=== PATIENT | male | born 1985 | race Caucasian/White ===

== ENCOUNTER → 2017-11-25 | Outpatient (CLI) | payer MEDICAID ==
--- NOTE | 2017-11-25 15:12 | RADIOLOGY REPORT (SQ) ---
EXAM DESCRIPTION: KUB COMPLETED DATE/TIME: 11/25/2017 2:34 pm REASON FOR STUDY: KIDNEY STONE N20.0 CALCULUS OF KIDNEY COMPARISON: 10/03/2016. NUMBER OF VIEWS: One view. TECHNIQUE: AP supine digital radiograph of the abdomen. LIMITATIONS: None. FINDINGS: CALCIFICATIONS: RIGHT KIDNEY: None. RIGHT URETER: No calcifications in the expected location of the ureter. LEFT KIDNEY: None. LEFT URETER: No calcifications in the expected location of the ureter. BLADDER: No suspicious calcifications in the pelvis. BOWEL GAS PATTERN AND SOFT TISSUES: Normal bowel gas pattern. No masses or organomegaly. BONES: No acute fracture. No worrisome bone lesions. OTHER: None. IMPRESSION: NO CALCIFICATIONS IDENTIFIED IN THE EXPECTED LOCATION OF THE URINARY SYSTEM. TECHNICAL DOCUMENTATION: JOB ID: [id number]- All Rights Reserved
== END ==
LOC: OD 14:27
PROVIDERS: ATTEND Urology
DX: N20.0 Calculus of kidney (principal)
CPT/HCPCS: 74018

== ENCOUNTER 2018-09-16 09:10 | Day surgery (SDC) | payer MEDICAID ==
[2018-09-09 10:04] LABS: HEMATOCRIT 42.8 % (37.9-51.0); MEAN CORPUSCULAR HEMOGLOBIN 28.4 pg (27.0-33.4); MEAN CORPUSCULAR VOLUME 81 fl (80-97); PLATELET COUNT 223 10^3/uL (150-450); RED BLOOD COUNT 5.27 10^6/uL (4.35-5.55); RED CELL DISTRIBUTION WIDTH 13.3 % (11.5-14.0); WHITE BLOOD COUNT 8.6 10^3/uL (4.0-10.5)
[2018-09-09 10:44] LABS: ANION GAP 12 (5-19); BLOOD UREA NITROGEN 15 mg/dL (7-20); CALCIUM 9.6 mg/dL (8.4-10.2); CARBON DIOXIDE 23 mmol/L (22-30); CHLORIDE 106 mmol/L (98-107); GLUCOSE 94 mg/dL (75-110); POTASSIUM 4.3 mmol/L (3.6-5.0); SODIUM 141.4 mmol/L (137-145)
[~2018-09-16 09:10] MED LIST: CEFAZOLIN 1 GM/D5W RTU 1 GM/50 ML RTUPB IV SCH; LACTATED RINGERS 1000 ML IV PRN; LIDOCAINE 0.5% INJ-PF (5 MG/ML) 50 ML SDV SUBCUT PRN; LIDOCAINE 4% TRANSPARENT DRESSING 5 GM KIT TP SCH; SUCCINYLCHOLINE CHLORIDE INJ 200 MG/10 ML VIAL ONE
[2018-09-16] MEDS ORDERED: METHYLENE BLUE 50 MG/10 ML AMPULE ONE (09:13)
[2018-09-16] MEDS ORDERED: LIDOCAINE 1%/EPINEPHRINE INJ 20 ML VIAL ONE (09:13)
[2018-09-16] MEDS ORDERED: LIDOCAINE 4% TRANSPARENT DRESSING 5 GM KIT ONE (09:24)
[2018-09-16] MEDS ORDERED: CEFAZOLIN 1 GM/D5W RTU 1 GM/50 ML RTUPB IV ONE (09:24)
[2018-09-16] MEDS ORDERED: FENTANYL CITRATE INJ/PF 250 MCG/5 ML AMPULE ONE (14:44)
[2018-09-16] MEDS ORDERED: DEXAMETHASONE SOD PHOSPHATE INJ 4 MG/1 ML VIAL ONE (14:44)
[2018-09-16] MEDS ORDERED: ONDANSETRON HCL INJ/PF 4 MG/2 ML SDV ONE (14:44)
[2018-09-16] MEDS ORDERED: MIDAZOLAM 2 MG/2 ML INJ ONE (14:44)
[2018-09-16] MEDS ORDERED: PROPOFOL INJ 200 MG/20 ML VIAL IV ONE (14:45)
[2018-09-16] MEDS ORDERED: ACETAMINOPHEN 1,000 MG/100 ML RTUPB IV ONE (15:01)
--- NOTE | 2018-09-16 15:04 | RADIOLOGY REPORT (SQ) ---
"EXAM DESCRIPTION: NM LYMPHATICS/LYMPH GLANDS COMPLETED DATE/TIME: 09/16/2018 12:27 pm REASON FOR STUDY: MELANOMA C43.59 MALIGNANT MELANOMA OF OTHER PART OF TRUNK COMPARISON: None. RADIONUCLIDE AND DOSE: 579 microcuries TC-99m tilmanocept - Lymphoseek. The route of agent administration: Subcutaneous in the skin. TECHNIQUE: The skin of the left back, near midline at the T7 level in the area of prior melanoma bio psy was prepped in sterile fashion. The radiopharmaceutical was administered in equally divided dose s in the skin around the punch biopsy site LIMITATIONS: None. FINDINGS: Images demonstrate activity at the injection site. There is rapid migration to a left axillary lymph node. No migration to the right axilla, left or ri ght groin is identified. These findings were discussed with Dr. Ovalles IMPRESSION: ADMINISTRATION OF RADIOPHARMACEUTICAL FOR SENTINEL LYMPH NODE EVALUATION. TECHNICAL DOCUMENTATION: JOB ID: [id number] [employer] - innovate | mentor | invest- All Rights Reserved Reading location - IP/workstation name: [facility]"
[2018-09-16] MEDS ORDERED: FENTANYL CITRATE INJ/PF 100 MCG/2 ML AMPUL IV PRN ×3 (15:21)
[2018-09-16] MEDS ORDERED: DIPHENHYDRAMINE HCL 50 MG/ML VIAL IV PRN (15:21)
[2018-09-16] MEDS ORDERED: OXYCODONE-ACETAMINOPHEN 5-325 MG TABLET PO PRN ×3 (15:21→16:38)
[2018-09-16] MEDS ORDERED: PROMETHAZINE HCL INJ 25 MG/1 ML VIAL IV PRN ×2 (15:21)
[2018-09-16] MEDS ORDERED: MEPERIDINE HCL/PF INJ 25 MG/1 ML DISP.SYRIN IV PRN (15:21)
[2018-09-16] MEDS ORDERED: MORPHINE SULFATE 10 MG/ML INJ IV PRN (15:21)
--- NOTE | 2018-09-16 16:38 | Discharge Summary ---
Discharge Summary (SDC) - Discharge Final Diagnosis: melanoma of back Date of Surgery: 09/16/18 Discharge Date: 09/16/18 Condition: Stable Forms: Discharge POC-Surgical Service Treatment or Instructions: WOUND CARE: 1) Do not get area wet for 48 hours. Keep outer dressings intact. You may cover your back with gauze and tape if it is more comfortable. After 48 hours you may remove axillary outer dressing but leave paper band aids (steri strips) beneath intact. Leave steri strips on your back intact as well. Warm water and soap may wash over the areas, pat dry, cover if needed. Do not scrub. Keep areas warm, dry and covered. PAIN MANAGEMENT: 1) You may take Toradol 10mg one pill by mouth every six hours as needed for pain. FOLLOW UP: 1) Follow up at [facility] in 7-10 days for wound evaluation and pathology review. Prescriptions: Ketorolac Tromethamine [Toradol 10 mg Tablet] 10 mg PO Q6HP PRN #20 tablet PRN Reason: Referrals: EJ FUCHS MD [Primary Care Provider] - TANK PATEL MD [ACTIVE STAFF] - 09/22/18 2:45 pm Discharge Activity: No Lifting/Push/Pulling, Walk Frequently Report the Following to Your Physician Immediately: Increase in Pain, Fever over 101 Degrees, Unusual Bleeding, Redness, Swelling, Warmth, Increased Soreness, Drainage-Yellow, Drainage-Garcia, Drainage-Green, Drainage-Foul Smelling
[2018-09-16] MEDS ORDERED: PROMETHAZINE HCL INJ 25 MG/1 ML VIAL ONE (16:54)
--- NOTE | 2018-09-16 16:55 | Operative Report ---
Operative Report DATE OF SURGERY: 09/16/18 PREOPERATIVE DIAGNOSIS: Intermediate thickness melanoma of the back POSTOPERATIVE DIAGNOSIS: Same OPERATION: 1. Wide excision of back melanoma. 2. [place] lymph node biopsy x2 left axilla SURGEON: TANK HADLEY PHYSICAL THERAPIST TECHNICIAN: LORETO RUTHERFORD ANESTHESIA: GA TISSUE REMOVED OR ALTERED: Melanoma back; 2 sentinel lymph nodes left axilla COMPLICATIONS: None ESTIMATED BLOOD LOSS: Scant INTRAOPERATIVE FINDINGS: see below PROCEDURE: Patient was seen in the preop holding area where he had previously underwent lymphoscintigraphy radiology department which demonstrated increased uptake in the left axilla. Bedside evaluation using the neoprobe showed activity in the right axilla as well as the right groin and suprapubic area. The patient was taken back to the radiology department where he was in nuclear medicine and found to have no increased activity in sites other than the back and left axilla. He was then taken to the main operating room where general anesthesia was induced. He was left in the supine position left arm abducted, left axilla clipped of hair, then prepped and draped in sterile fashion. Surgical plan surgical timeout were conducted. Using the neoprobe an area of increased activity in the low left axilla was identified. It was anesthetized with 1% plain lidocaine. A 2-1/2 cm incision was made over the hot point, and 2 sentinel lymph nodes were harvested. First had an in vivo count of 58,784 and an ex vivo count of 53,420. The second sentinel lymph node had an in vivo count of 4310 an ex vivo count of 4441. Background counts were negligible. We felt the sentinel lymph node harvest portion of the operation was complete. Wound closed with 3-0 Vicryl benzoin and Steri-Strips. We now rotated the patient onto his right side left side up with axillary roll placed in the right axilla. The target melanoma was identified, and prepped and draped with Betadine. Markings were made around the melanoma for a 2 cm margin laterally and a 3 cm margin superiorly and inferiorly. Skin was anesthetized with 1% plain lidocaine. An elliptical incision was made with a # 10 blade, the level of dissection taken down to the trapezius fascia and the fascia overlying the spinous processes. The excision was removed with electrocautery. It was marked with a short suture in the superior position long suture in the inferior position and sent to pathology for permanent analysis. Lateral and medial side flaps were elevated with electrocautery. The wound closed in layers with multiple 2-0 Vicryl sutures of 3-0 Vicryl, benzoin and Steri-Strips. No drain was placed. Patient tolerated procedure well, extubated , taken recovery in stable condition. The physician central supply assistant, Ms. Munroe, provided assistance during this case by: Assisting with retracting tissue, instillation of local anesthesia and closure of skin incisions.
[2018-09-16] MEDS ORDERED: ONDANSETRON 4 MG TAB.RAPDIS ONE ×2 (18:41→18:48)
[2018-09-16 18:55] VITALS: BP 135/94
[2018-09-16] MEDS ORDERED: ONDANSETRON 4 MG TAB.RAPDIS PO ONE (19:00)
== END 2018-09-16 18:55 | disposition home or self-care (01) ==
LOC: OROUT 09:10
PROVIDERS: ATTEND Surgery
DX: C43.59 Malignant melanoma of other part of trunk (principal); M10.9 Gout, unspecified; F84.0 Autistic disorder; J45.909 Unspecified asthma, uncomplicated; Z79.51 Long term (current) use of inhaled steroids; Z88.8 Allergy status to other drugs, medicaments and biological substances
CPT/HCPCS: 36415; 85027; 80048; 88342 ×2; 88341 ×2; 88307 ×2; 78195; 21930; 38500; A9520; J2250; J0690; J1100; S0119; J3010; J3490 ×2; J2550; J0330; J2405; J2704; J0131; Q9968; 1610

== ENCOUNTER → 2020-06-22 | Outpatient (CLI) | payer MEDICAID ==
[2020-06-22 09:19] LABS: ABSOLUTE EOSINOPHILS # (AUTO) 0.2 10^3/uL (0.0-0.6); ABSOLUTE LYMPHOCYTES (AUTO) 2.6 10^3/uL (0.5-4.7); ABSOLUTE MONOCYTES (AUTO) 0.5 10^3/uL (0.1-1.4); ABSOLUTE NEUT (AUTO) 5.1 10^3/uL (1.7-8.2); BASOPHILS % (AUTO) 0.3 % (0-2); EOSINOPHILS % (AUTO) 2.4 % (0-6); HEMOGLOBIN 15.6 g/dL (13.5-17.0); MEAN CORPUSCULAR HEMOGLOBIN 28.3 pg (27.0-33.4); MEAN CORPUSCULAR HGB CONC 34.6 g/dL (32.0-36.0); MEAN CORPUSCULAR VOLUME 82 fl (80-97); MONOCYTES % (AUTO) 5.8 % (3-13); PLATELET COUNT 214 10^3/uL (150-450); RED BLOOD COUNT 5.51 10^6/uL (4.35-5.55); SEGMENTED NEUTROPHILS % (AUTO) 60.5 % (42-78); TOTAL CELLS COUNTED % (AUTO) 100 %; WHITE BLOOD COUNT 8.5 10^3/uL (4.0-10.5)
[2020-06-22 09:46] LABS: ALBUMIN 4.9 g/dL (3.5-5.0); ALKALINE PHOSPHATASE 89 U/L (38-126); ANION GAP 11 (5-19); ASPARTATE AMINO TRANSFERASE 39 U/L (17-59); BILIRUBIN,TOTAL 0.7 mg/dL (0.2-1.3); BLOOD UREA NITROGEN 12 mg/dL (7-20); CALCIUM 9.7 mg/dL (8.4-10.2); CARBON DIOXIDE 24 mmol/L (22-30); CHLORIDE 104 mmol/L (98-107); CHOLESTEROL 243.41 mg/dL (0-200); GLUCOSE 110 mg/dL (75-110); POTASSIUM 4.3 mmol/L (3.6-5.0); TRIGLYCERIDES 183 mg/dL (<150)
[2020-06-22 10:01] LABS: VLDL CHOLESTEROL 36.6 mg/dL (10-31)
[2020-06-22 10:03] LABS: DIRECT LDL 182 mg/dL (<100)
== END ==
LOC: OD 08:40
PROVIDERS: ATTEND Family Medicine Geriatric Medicine
DX: E66.3 Overweight (principal); Z79.899 Other long term (current) drug therapy
CPT/HCPCS: 36415; 80053; 80061; 84443; 85025

== ENCOUNTER → 2020-10-11 | Outpatient (CLI) | payer MEDICAID ==
--- NOTE | 2020-10-11 14:37 | ER RDC ASSESSMENT REPORT ---
Intake - In the Last 14 days Have you traveled outside [place]?: No Have you been in close contact with someone CONFIRMED: No Worked in Healthcare?: No - Symptoms Subjective Fever([place] feverish): No Chills: No Muscule Aches: No Runny Nose: No Sore Throat: No Cough (New or worsening chronic cough): No Shortness of breath: No Nausea or Vomiting: No Headache: Yes Abdominal Pain: No Diarrhea(3 or more loose stools in last 24 hours): No - Do you have any of the following Chronic lung disease: Asthma or emphysema or COPD: Yes Chronic Lung Disease Comment: asthma Cystic Fibrosis: No Diabetes: No High Blood Pressure: No Cardiovascular Disease: No Chronic Kidney Disease: Yes Chronic Liver Disease: No Chronic blood disorder like Sickle Cell Disease: No Weak immune system due to disease or medication: No Neurologic condition that limits movement: Yes Neurological Condition Comment: autism Developmental delay - Moderate to Severe: No Recent (within past 2 weeks) or current : No Morbid Obesity (>100 pounds over ideal weight): No - Objective Temperature: 97.9 F Pulse Rate: 69 Respiratory Rate: 16 Blood Pressure: 123/66 O2 Sat by Pulse Oximetry: 96 Objective: Given above, testing performed: If Testing Performed: Test Specimen Type Sent to General - General Information source: Patient, Parent Notes: Patient presents to the RDC for screening for the coronavirus. Patient has had headache symptoms and sinus congestion for the past 3 days. - Related Data Allergies/Adverse Reactions: albuterol [Albuterol] Allergy (Verified 09/09/18 08:39) Facial swelling Past Medical History - General Information source: Patient, Parent - Social History Smoking Status: Never Smoker Family History: Reviewed & Not Pertinent - Past Medical History Cardiac Medical History: Denies: Hx Coronary Artery Disease, Hx Heart Attack, Hx Hypertension Pulmonary Medical History: Reports: Hx Asthma - H/O SPORTS INDUCED CHILD, NO RECENT ATTACK, NO MEDS Denies: Hx Bronchitis, Hx COPD, Hx Pneumonia Neurological Medical History: Reports: Hx Seizures - H/O SEIZURES CHILD, NONE SINCE CHILDHOOD. Denies: Hx Cerebrovascular Accident Renal/ Medical History: Reports: Hx Kidney Stones GI Medical History: Denies: Hx Hepatitis, Hx Hiatal Hernia, Hx Ulcer Musculoskeletal Medical History: Denies Hx Arthritis Infectious Medical History: Denies: Hx Hepatitis Past Surgical History: Reports: Hx Urinary Tract Surgery - stents r/t blockage Physical Exam - Notes Notes: The patient was evaluated during the global Covid 19 pandemic, and that diagnosis was suspected/considered upon their initial presentation. Their evaluation, treatment and testing was consistent with current guidelines for patients who present with complaints or symptoms that may be related to Covid 19. Full physical exam could not be performed due to covid 19 isolation protocols. Constitutional: Nontoxic appearance, no acute distress Eyes: Nonicteric, extraocular movements intact, sclera clear Cardiovascular: Heart rate and rhythm regular, no JVD Respiratory: Breath sounds clear bilaterally, nonlabored breathing, no use of accessory muscles, no tachypnea Gastrointestinal: Abdomen not distended Muculoskeletal: Moves all extremities well Skin: Normal color Neuro: Awake alert oriented, normal speech Psych: Normal mood and affect Diagnostic Results Laboratory Results: Patient presents with symptoms worrisome for possible Covid 19. Patient does not have emergency worrying symptoms such as difficulty breathing, shortness of breath, chest pain, pressure, confusion or cyanosis. Patient appears suitable for discharge as vital signs are stable and patient is nontoxic in appearance. Good return precautions have been discussed with patient, patient verbalized understanding and is agreeable with discharge plan of care at this time. Patient Education/Counseling Counseling/Education: Patient was provided with discharge information including: As a person under investigation for Covid 19, the [place] department of Health and Human Services, division of public health advises you to adhere to the following guidance until your test results are reported to you. If your test result is positive, you will receive additional information from your provider and your local health department at that time. Remain at home until you are cleared by the health provider or public health authorities. Keep a log of visitors to your home, notify any visitors to your home of your isolation status. If you plan to move to a new address or leave the county, notify the local health department in your County. Call your doctor or seek care if you have an urgent medical need. Before seeking medical care, call ahead to get instructions from the provider before arriving at the medical office clinic or hospital. Notify them that you are being tested for the virus that causes Covid 19 so that arrangements can be made, as necessary, to prevent transmission to others in the healthcare setting. Next, notify the local health department in your county. If a medical emergency arises and you need to call 911, inform the first responders that you are being tested for the virus that causes Covid 19. Next, notify the local health department in your county. RDC Discharge - Discharge Condition: Stable Disposition: Home; Selfcare
[2020-10-11 14:40] VITALS: BP 123/66
[2020-10-11 16:00] LABS: A TYPE INFLUENZA AG NEGATIVE (NEGATIVE); B INFLUENZA AG NEGATIVE (NEGATIVE)
== END ==
LOC: RDC 13:58
PROVIDERS: ATTEND Nurse Practitioner Family
DX: Z20.828 Contact with and (suspected) exposure to other viral communicable diseases (principal); R51.9 Headache, unspecified; J45.909 Unspecified asthma, uncomplicated; R09.81 Nasal congestion; Z88.8 Allergy status to other drugs, medicaments and biological substances
CPT/HCPCS: 87070; 87880; 87635; 87804; 99201; 99211; C9803

== ENCOUNTER 2020-10-16 18:01 | Emergency (ER) | payer MEDICAID ==
--- NOTE | 2020-10-16 20:46 | ER Document Report ---
ED Medical Screen (RME) - General Chief Complaint: Cough Stated Complaint: COUGH Time Seen by Provider: 10/16/20 20:38 Primary Care Provider: EJ FUCHS MD [Primary Care Provider] - Follow up as needed TRAVEL OUTSIDE OF THE [place] IN LAST 30 DAYS: No - HPI Notes: Patient is a 35-year-old male who presents with shortness of breath, cough, and nasal congestion for the past 2 weeks. Patient had rapid flu, strep and Covid swabs done at the onset of symptoms which were all negative. Patient states all his symptoms have resolved but he continues to have a cough. He denies fever, chills, and chest pain. - Related Data Allergies/Adverse Reactions: albuterol [Albuterol] Allergy (Verified 09/09/18 08:39) Facial swelling Home Medications: triliptal, mucinex, nyquil Past Medical History - Past Medical History Cardiac Medical History: Denies: Hx Coronary Artery Disease, Hx Heart Attack, Hx Hypertension Pulmonary Medical History: Reports: Hx Asthma - H/O SPORTS INDUCED CHILD, NO RECENT ATTACK, NO MEDS Denies: Hx Bronchitis, Hx COPD, Hx Pneumonia Neurological Medical History: Reports: Hx Seizures - H/O SEIZURES CHILD, NONE SINCE CHILDHOOD. Denies: Hx Cerebrovascular Accident Renal/ Medical History: Reports: Hx Kidney Stones GI Medical History: Denies: Hx Hepatitis, Hx Hiatal Hernia, Hx Ulcer Musculoskeltal Medical History: Denies Hx Arthritis Infectious Medical History: Denies: Hx Hepatitis Past Surgical History: Reports: Hx Urinary Tract Surgery - stents r/t blockage - Immunizations Hx Diphtheria, Pertussis, Tetanus Vaccination: Yes Physical Exam - Vital signs Vitals: Temp Pulse Resp BP Pulse Ox 98.1 F 69 20 150/87 H 98 10/16/20 18:07 10/16/20 18:07 10/16/20 18:07 10/16/20 18:07 10/16/20 18:07 - Respiratory Respiratory status: No respiratory distress Breath sounds: Normal, Nonproductive cough Course - Re-evaluation Re-evalutation: I have greeted and performed a rapid initial assessment of this patient. A comprehensive ED assessment and evaluation of the patient, analysis of test results and completion of medical decision making process will be conducted by an additional ED providers. - Vital Signs Vital signs: Temp Pulse Resp BP Pulse Ox 98.1 F 69 20 150/87 H 98 10/16/20 18:07 10/16/20 18:07 10/16/20 18:07 10/16/20 18:07 10/16/20 18:07 Doctor's Discharge - Discharge Referrals: EJ FUCHS MD [Primary Care Provider] - Follow up as needed
--- NOTE | 2020-10-16 21:25 | RADIOLOGY REPORT (SQ) ---
EXAM DESCRIPTION: XR CHEST 1 VIEW COMPLETED DATE/TME: 10/16/2020 21:02 CLINICAL HISTORY: 35 years, Male, cough COMPARISON: None. TECHNIQUE: PA view of the chest FINDINGS: Cardiomediastinal silhouette is not enlarged. No suspicious lung pleural bone abnormalities. IMPRESSION: Negative chest x-ray
[2020-10-16] MEDS ORDERED: DEXAMETHASONE 4 MG TABLET PO ONE (22:23)
--- NOTE | 2020-10-16 22:29 | ER Document Report ---
ED Respiratory Problem - General Chief Complaint: Cough Stated Complaint: COUGH Time Seen by Provider: 10/16/20 20:38 Primary Care Provider: EJ FUCHS MD [Primary Care Provider] - Follow up as needed Notes: CHIEF COMPLAINT: Cough for 2 weeks HPI: 35-year-old male presenting for continued cough with occasional shortness of breath with coughing episodes no fever. Symptoms ongoing for 2 weeks. Had Covid flu and strep testing 5 days ago that was all negative per the patient. ROS: See HPI - all other systems were reviewed and are otherwise negative Constitutional: no fever Eyes: no drainage, no blurred vision ENT: no runny nose, no sore throat Cardiovascular: no chest pain Resp: + SOB, + cough GI: no vomiting, no diarrhea, no abdominal pain : no dysuria Integumentary: no rash Allergy: no hives Musculoskeletal: no extremity pain or swelling Neurological: no numbness/tingling, no weakness MEDICATIONS: I agree with the patient medications as charted by the RN. ALLERGIES: I agree with the allergies as charted by the RN. PAST MEDICAL HISTORY/PAST SURGICAL HISTORY: Reviewed and agree as charted by RN. SOCIAL HISTORY: Reviewed and agree as charted by RN. FAMILY HISTORY: No significant familial comorbid conditions directly related to patient complaint EXAM: Reviewed vital signs as charted by RN. CONSTITUTIONAL: Alert and oriented and responds appropriately to questions. Well-appearing; well-nourished HEAD: Normocephalic; atraumatic EYES: PERRL; Conjunctivae clear, sclerae non-icteric ENT: normal nose; no rhinorrhea; moist mucous membranes; pharynx without lesions noted, no uvula edema or deviation, no tonsillar hypertrophy, phonation normal NECK: Supple without meningismus; non-tender; no cervical lymphadenopathy, no masses CARD: RRR; no murmurs, no clicks, no rubs, no gallops; symmetric distal pulses RESP: Normal chest excursion without splinting or tachypnea; breath sounds clear and equal bilaterally; no wheezes, no rhonchi, no rales, pulse oximetry 98% on room air not hypoxic, mildly spastic cough noted ABD/GI: Normal bowel sounds; non-distended; soft, non-tender, no rebound, no guarding; no palpable organomegaly or masses. BACK: The back appears normal and is non-tender to palpation, there is no CVA tenderness EXT: Normal ROM in all joints; non-tender to palpation; no cyanosis, no effusions, no edema SKIN: Normal color for age and race; warm; dry; good turgor; no acute lesions noted NEURO: Moves all extremities equally; Motor and sensory function intact PSYCH: The patient's mood and manner are appropriate. Grooming and personal hygiene are appropriate. MDM: 35-year-old male with a mildly spastic cough over the last 2 weeks. Patient reports negative strep flu and Covid testing 5 days ago. His chest x- ray tonight ordered in the triage process is negative he is in no acute distress he is not hypoxic or tachypneic. Will give a one-time dose of Decadron, placed on flovent inhaler as allergic to albuterol and follow-up primary care provider TRAVEL OUTSIDE OF THE [place] IN LAST 30 DAYS: No - Related Data Allergies/Adverse Reactions: albuterol [Albuterol] Allergy (Verified 09/09/18 08:39) Facial swelling Home Medications: triliptal, mucinex, nyquil Past Medical History - Social History Smoking Status: Never Smoker Family History: Reviewed & Not Pertinent - Past Medical History Cardiac Medical History: Denies: Hx Coronary Artery Disease, Hx Heart Attack, Hx Hypertension Pulmonary Medical History: Reports: Hx Asthma - H/O SPORTS INDUCED CHILD, NO RECENT ATTACK, NO MEDS Denies: Hx Bronchitis, Hx COPD, Hx Pneumonia Neurological Medical History: Reports: Hx Seizures - H/O SEIZURES CHILD, NONE SINCE CHILDHOOD. Denies: Hx Cerebrovascular Accident Renal/ Medical History: Reports: Hx Kidney Stones GI Medical History: Denies: Hx Hepatitis, Hx Hiatal Hernia, Hx Ulcer Musculoskeletal Medical History: Denies Hx Arthritis Infectious Medical History: Denies: Hx Hepatitis Past Surgical History: Reports: Hx Urinary Tract Surgery - stents r/t blockage - Immunizations Hx Diphtheria, Pertussis, Tetanus Vaccination: Yes Physical Exam - Vital signs Vitals: Temp Pulse Resp BP Pulse Ox 98.1 F 69 20 150/87 H 98 10/16/20 18:07 10/16/20 18:07 10/16/20 18:07 10/16/20 18:07 10/16/20 18:07 Course - Vital Signs Vital signs: Temp Pulse Resp BP Pulse Ox 97.9 F 78 18 141/88 H 99 10/16/20 21:16 10/16/20 21:16 10/16/20 21:16 10/16/20 21:16 10/16/20 21:16 Discharge - Discharge Clinical Impression: Acute bronchospasm Condition: Stable Disposition: HOME, SELF-CARE Additional Instructions: Continue [id number] medications for cough. Use the Flovent as prescribed. Follow-up with your primary care provider tomorrow by phone for reevaluation of symptoms Prescriptions: Fluticasone Propionate [Flovent Hfa 110 Mcg Inhalation Aerosol 12 gm] 1 puff IH Q12 7 Days #1 inhaler Referrals: EJ FUCHS MD [Primary Care Provider] - Follow up as needed
[2020-10-16 22:41] VITALS: BP 143/84
== END 2020-10-16 22:42 | disposition home or self-care (01) ==
LOC: ER 18:01
DX: J98.01 Acute bronchospasm (principal); R05 Cough; R06.02 Shortness of breath; Z88.8 Allergy status to other drugs, medicaments and biological substances; Z79.899 Other long term (current) drug therapy
CPT/HCPCS: 99283; 71045; J3490; J8540